=== PATIENT | male | born 1965 ===

== ENCOUNTER 2023-01-19 06:40 | Observation (INO) ==
[~2023-01-19 06:40] MED LIST: Buffered Lidocaine 1% SYRIN 1 ml INTRADERM ONE; Lactated Ringers 1000 ml BAG 1,000 ML IV SCH; Sevoflurane BOTTLE ONE; Tranexamic Acid 1,000 MG/10 ML 1,000 MG in NS 0.9% 50 ML 50 ML IV SCH
[2023-01-19] MEDS ORDERED: ceFAZolin 2 GM in NS PREMIX 2 GM/100 ML BAG IVPB ONE (06:59)
[2023-01-19 07:28] LABS: Rapid COVID-19 Molecular Undetected (Undetected)
[2023-01-19] MEDS ORDERED: Glycopyrrolate IV 0.2 MG/ML 1 ML VIAL ONE (09:26)
[2023-01-19] MEDS ORDERED: Lidocaine 2% PF 5 ML VIAL ONE (10:03)
[2023-01-19] MEDS ORDERED: Midazolam 2 mg/2 ml VIAL 1 mg/ml 2 ml VIAL (2 mg) ONE (10:04)
[2023-01-19] MEDS ORDERED: Phenylephrine 40 mcg/mL 10mL (400mcg) SYRINGE ONE (10:04)
[2023-01-19] MEDS ORDERED: Ondansetron 4 mg VIAL 2 MG/ML 2 ml VIAL ONE (10:05)
[2023-01-19] MEDS ORDERED: Vancomycin 1,000 MG VIAL ONE (10:17)
[2023-01-19] MEDS ORDERED: Propofol 10 MG/ML 20 ML BTL ONE (11:10)
[2023-01-19] MEDS ORDERED: Naloxone 0.4 mg VIAL 0.4 mg/ml 1 ml VIAL IV PRN (12:12)
[2023-01-19] MEDS ORDERED: HYDROmorphone 1 MG/1 ML SYRINGE IV PRN (12:12)
[2023-01-19] MEDS ORDERED: fentaNYL 100 mcg/2 ml 50 MCG/ML VIAL IV PRN (12:12)
[2023-01-19] MEDS ORDERED: Ondansetron 4 mg VIAL 2 MG/ML 2 ml VIAL IV PRN ×2 (12:12→15:04)
[2023-01-19] MEDS ORDERED: Acetaminophen IV 1 GM/100ML 1,000 MG/100 ML BAG IV ONE (12:16)
[2023-01-19] MEDS ORDERED: Dexmedetomidine 200 mcg/2 ml 2 ml VIAL (200 mcg) ONE (12:16)
[2023-01-19] MEDS ORDERED: Lactulose 30 ml UDC PO PRN (15:04)
[2023-01-19] MEDS ORDERED: Morphine 2 MG/ML SYRINGE IV PRN (15:04)
[2023-01-19] MEDS ORDERED: Magnesium Hydroxide LIQ 30 ML UDC PO PRN (15:04)
[2023-01-19] MEDS ORDERED: Ondansetron ODT 4 mg TAB 4 MG TAB PO PRN (15:04)
[2023-01-19] MEDS: Lactated Ringers 1000 ml BAG 1,000 ML IV SCH (18:51)
[2023-01-19] MEDS: ceFAZolin 1 GM ADVAN 1 GM in NS 0.9% 50 ML 50 ML IVPB SCH (20:56)
[2023-01-19] MEDS: Magnesium Hydroxide LIQ 30 ML UDC PO SCH (20:57)
[2023-01-20] MEDS: ceFAZolin 1 GM ADVAN 1 GM in NS 0.9% 50 ML 50 ML IVPB SCH ×2 (03:49→12:10)
[2023-01-20] MEDS: Lactated Ringers 1000 ml BAG 1,000 ML IV SCH (05:46)
[2023-01-20 06:30] LABS: Hemoglobin 10.3 g/dL (13.2-16.3); Mean Platelet Volume 9.7 fL (7.5-11.2); Platelet Count 167 10^3/uL (150-450)
[2023-01-20 06:50] LABS: Calcium 8.6 mg/dL (8.6-10.3); Creatinine, Serum 1.11 mg/dL (0.67-1.17); Potassium 4.4 mmol/L (3.5-5.0); eGFR CKD-EPI 77.9 (>60)
[2023-01-20] MEDS: Vitamin THERAPEUTIC TAB PO SCH (08:42)
[2023-01-20] MEDS: Magnesium Hydroxide LIQ 30 ML UDC PO SCH ×2 (08:42→20:31)
[2023-01-21 07:51] LABS: Hematocrit 27.5 % (38-53); Hemoglobin 9.6 g/dL (13.2-16.3); Mean Platelet Volume 10.4 fL (7.5-11.2); Platelet Count 151 10^3/uL (150-450)
[2023-01-21] MEDS: Vitamin THERAPEUTIC TAB PO SCH (08:41)
[2023-01-21] MEDS: Magnesium Hydroxide LIQ 30 ML UDC PO SCH (08:41)
[2023-01-21 14:12] VITALS: BP 126/66
== END 2023-01-21 14:55 ==
LOC: INTOOBSV 06:40 → AA 06:40 → SSU 15:04
PROVIDERS: ADMIT Orthopaedic Surgery; ATTEND Orthopaedic Surgery